=== PATIENT | female | born 1955 | race Caucasian/White ===

== ENCOUNTER 2024-10-31 17:40 | Emergency (ER) | payer OTHER ==
[~2024-10-31] VITALS: Ht 165.1 cm; Wt 95.3 kg
[2024-10-31] MEDS ORDERED: SODIUM CHLORIDE 0.9% 1,000 ML IV ONE (18:00)
[2024-10-31 18:15] LABS: BASO % 0.2 % (0.0-1.0); EOS # 0.1 10*3/uL (0.0-0.4); EOS % 0.5 % (1.0-4.0); HEMATOCRIT 50.2 % (37.0-47.0); MEAN CELL VOLUME 92.1 fl (81.0-99.0); MEAN CORPUSCULAR HGB 29.5 pg (27.0-31.0); MEAN CORPUSCULAR HGB CONC 32.1 g/dl (33.0-37.0); MEAN PLATELET VOLUME 10.5 fl (9.6-12.3); MONO # 1.1 10*3/uL (0.1-1.0); MONO % 9.9 % (3.0-9.0); NEUT # 8.8 10*3/uL (2.3-7.9); NEUT % 78.2 % (47.0-73.0); PLATELET COUNT AUTOMATED 226 10*3/uL (130-400); RED BLOOD COUNT 5.45 10*6/uL (4.10-5.10); RED CELL DISTRI WIDTH 12.9 % (0-14.5); WHITE BLOOD COUNT 11.3 10*3/uL (4.8-10.8)
[2024-10-31 18:37] LABS: ALKALINE PHOSPHATASE 155 U/L (46-116); BUN 17 mg/dl (9-23); CHLORIDE 102 mmol/L (98-107); LIPASE 38 U/L (12-53); POTASSIUM 4.1 mmol/L (3.4-5.1); SGPT/ALT 190 U/L (5-49); TOTAL PROTEIN 8.2 gm/dL (6.0-8.0)
[2024-10-31] MEDS ORDERED: Ondansetron4 MG PO (19:14)
[2024-10-31] MEDS ORDERED: CIPRO500 MG PO (19:14)
[2024-10-31] MEDS ORDERED: METRONIDAZOLE500 M1 PO (19:14)
== END 2024-10-31 19:20 | disposition home or self-care (01) ==
LOC: ED 17:40
PROVIDERS: Nurse Practitioner Family
DX: K52.9 Noninfective gastroenteritis and colitis, unspecified (principal); R74.01 Elevation of levels of liver transaminase levels